=== PATIENT | female | born 1980 | race American Indian/Alaskan Native ===

== ENCOUNTER 2018-05-02 23:43 | Observation (INO) | payer SELFPAY ==
[2018-05-03] MEDS ORDERED: NACL 0.9% 1000 ML 1,000 ML IV ONE ×2 (02:06→07:11)
[2018-05-03 03:12] LABS: Basophils # (Auto) 0.1 K/mm3 (0.0-0.1); Basophils % (Auto) 0.7 % (0.0-1.8); Eosinophils # (Auto) 0.2 K/mm3 (0.0-0.4); Eosinophils % (Auto) 1.1 % (0.0-4.3); Lymphocytes # (Auto) 3.9 K/mm3 (1.2-5.4); Lymphocytes % (Auto) 26.9 % (13.4-35.0); Mean Corpuscular HGB Conc 35 % (30-34); Mean Corpuscular Hemoglobin 33 pg (28-32); Mean Corpuscular Volume 95 fl (79-97); Monocytes # (Auto) 0.6 K/mm3 (0.0-0.8); Monocytes % (Auto) 4.2 % (0.0-7.3); Platelet Count 319 K/mm3 (140-440); Red Blood Count 4.84 M/mm3 (3.65-5.03); Red Cell Distribution Width 13.3 % (13.2-15.2)
[2018-05-03 03:29] LABS: Alanine Aminotransferase 25 units/L (7-56); Albumin 4.6 g/dL (3.9-5); BUN/Creatinine Ratio 15; Blood Urea Nitrogen 9 mg/dL (7-17); Calcium 9.2 mg/dL (8.4-10.2); Hemolysis Index 12; Lipase 38 units/L (13-60)
[2018-05-03 04:41] LABS: Bilirubin,Urine NEG (Negative); Blood,Urine NEG (Negative); Color,Urine Yellow (Yellow); Protein,Urine <15 mg/dL mg/dL (Negative); Urobilinogen,Urine < 2.0 mg/dL (<2.0); WBC,Urine < 1.0 /HPF (0.0-6.0)
[2018-05-03] MEDS ORDERED: MORPHINE IV ONE (07:30)
[2018-05-03] MEDS ORDERED: ASPIRIN PO ONE ×2 (07:31→10:50)
[2018-05-03] MEDS ORDERED: HumuLIN R IV ONE (07:32)
[2018-05-03] MEDS ORDERED: ZOFRAN IV ONE (07:34)
--- NOTE | 2018-05-03 08:43 | XRay Report ---
AP CHEST: HISTORY: chest pain AP view of the chest demonstrates a normal mediastinal and cardiac contour with clear lungs and normal bony and soft tissue structures. IMPRESSION: Unremarkable AP chest.
--- NOTE | 2018-05-03 09:29 | Cat Scan Report ---
CT ABDOMEN PELVIS WITHOUT CONTRAST: HISTORY: abdominal pain. COMPARISON: none. TECHNIQUE: Helical CT in 1.25mm intervals without IV contrast. Sagittal and coronal reconstructions. FINDINGS: Lung bases: Normal. Liver: Normal. Biliary system: Normal. Pancreas: Normal. Spleen: Normal. Kidneys/ureters/bladder: Normal. Adrenal glands: Normal. Aorta: Normal. Intestines: Normal. Appendix: Normal. Pelvic viscera: Normal. Ascites: None. Adenopathy: None. Musculoskeletal: Normal. IMPRESSION: Unremarkable CT scan of the abdomen and pelvis without contrast.
--- NOTE | 2018-05-03 10:31 | Emergency Department Report ---
ED General Adult HPI - General Chief complaint: Abdominal Pain Stated complaint: BACK,PELVIC,FOOT PAIN Time Seen by Provider: 05/03/18 06:04 Source: patient Mode of arrival: Ambulatory Limitations: No Limitations - History of Present Illness Initial comments: 89-year-old female with a history of hypercholesteremia or diabetes, and hypertension presents with the complaint of abdominal pain. Patient states she' s had abdominal pain for the past 2 days. Patient describes the pain as being an 8 out of 10 in her lower abdominal region. Patient denies any vaginal bleeding. Patient's also states that she has been noncompliant with her diabetes medication and her blood sugar has also been up. Patient denies any dysuria or any hematuria. Patient states that she has developed the onset of chest pain 6 hours ago as well. Patient denies any radiation of the chest pain but states the chest pain is sharp in nature. Patient also complains of shortness of breath. Patient complains of left foot pain but denies any fever or any ulcers. Severity scale (0 -10): 3 - Related Data Previous Rx's Medication Instructions Recorded Last Taken Type Gentamicin 0.3% Ophth Soln 2 drops OP Q4H #1 bottle 12/13/14 Unknown Rx HYDROcodone/APAP 5-325 [Hope 1 each PO Q6HR PRN #12 tablet 12/13/14 Unknown Rx 5/325] Ibuprofen [Motrin 800 MG tab] 800 mg PO Q8H PRN #30 tablet 12/13/14 Unknown Rx Sulfamethoxazole/Trimethoprim 1 each PO BID #14 tablet 12/13/14 Unknown Rx [Bactrim Ds] Allergies Allergy/AdvReac Type Severity Reaction Status Date / Time shellfish derived Allergy Swelling Verified 12/13/14 13:08 ED Review of Systems ROS: Stated complaint: BACK,PELVIC,FOOT PAIN Other details as noted in HPI Comment: All other systems reviewed and negative Constitutional: denies: chills, fever Eyes: denies: eye pain, eye discharge, vision change ENT: denies: ear pain, throat pain Respiratory: denies: cough, shortness of breath, wheezing Cardiovascular: chest pain. denies: palpitations Endocrine: no symptoms reported Gastrointestinal: abdominal pain. denies: nausea, diarrhea Genitourinary: denies: urgency, dysuria, discharge Musculoskeletal: denies: back pain, joint swelling, arthralgia Skin: denies: rash, lesions Neurological: denies: headache, weakness, paresthesias Psychiatric: denies: anxiety, depression Hematological/Lymphatic: denies: easy bleeding, easy bruising ED Past Medical Hx - Past Medical History Hx Hypertension: Yes Hx Diabetes: Yes Additional medical history: High Cholesterol - Surgical History Additional Surgical History: hernia repair / breast reduction - Social History Smoking Status: Current Every Day Smoker Substance Use Type: None - Medications Home Medications: Home Medications Medication Instructions Recorded Confirmed Last Taken Type Gentamicin 0.3% Ophth Soln 2 drops OP Q4H #1 bottle 12/13/14 Unknown Rx HYDROcodone/APAP 5-325 [Hope 1 each PO Q6HR PRN #12 tablet 12/13/14 Unknown Rx 5/325] Ibuprofen [Motrin 800 MG tab] 800 mg PO Q8H PRN #30 tablet 12/13/14 Unknown Rx Sulfamethoxazole/Trimethoprim 1 each PO BID #14 tablet 12/13/14 Unknown Rx [Bactrim Ds] ED Physical Exam - General Limitations: No Limitations General appearance: alert, other (awake, uncomfortable) - Head Head exam: Present: atraumatic, normocephalic - Eye Eye exam: Present: normal appearance - ENT ENT exam: Present: mucous membranes moist - Neck Neck exam: Present: normal inspection - Respiratory Respiratory exam: Present: normal lung sounds bilaterally. Absent: respiratory distress - Cardiovascular Cardiovascular Exam: Present: regular rate, normal rhythm. Absent: systolic murmur, diastolic murmur, rubs, gallop - GI/Abdominal GI/Abdominal exam: Present: soft, tenderness (tender in left lower quadrant), normal bowel sounds - Extremities Exam Extremities exam: Present: normal inspection - Back Exam Back exam: Present: normal inspection - Neurological Exam Neurological exam: Present: alert, oriented X3 - Psychiatric Psychiatric exam: Present: normal affect, normal mood - Skin Skin exam: Present: warm, dry, intact, normal color. Absent: rash ED Course Vital Signs 05/03/18 05/03/18 05/03/18 00:27 02:00 07:09 Temperature 99.2 F 99.2 F Pulse Rate 111 H 106 H Respiratory 18 18 18 Rate Blood Pressure 155/115 155/115 O2 Sat by Pulse 98 100 Oximetry 05/03/18 05/03/18 05/03/18 08:47 09:00 09:15 Temperature Pulse Rate 104 H 99 H 95 H Respiratory 14 13 14 Rate Blood Pressure 137/83 130/86 O2 Sat by Pulse 99 93 94 Oximetry 05/03/18 05/03/18 05/03/18 09:30 09:45 11:54 Temperature Pulse Rate 91 H 97 H Respiratory 14 14 18 Rate Blood Pressure 135/82 127/67 O2 Sat by Pulse 96 97 Oximetry - Reevaluation(s) Reevaluation #1: 05/03/18 11:51 Patient lanes of pain and was given Toradol therapy which helped improve this. Patient was also noted to have a elevated anion gap however had a normal pH on the VBG. She received IV fluids and Accu-Chek has downgraded. Call placed to the hospitalist service and hospitalist wants to evaluate the patient prior to formally admitting patient. 05/03/18 11:52 ED Medical Decision Making - Lab Data Result diagrams: 05/03/18 02:22 05/03/18 10:51 - EKG Data -: EKG Interpreted by Me EKG shows normal: sinus rhythm Rate: normal - EKG Data Interpretation: no acute changes - Radiology Data Radiology results: report reviewed Critical Care Time: No Critical care attestation.: If time is entered above; I have spent that time in minutes in the direct care of this critically ill patient, excluding procedure time. ED Disposition Clinical Impression: Chest pain Disposition: OP ADMIT IP TO THIS HOSP Is pt being admited?: Yes Does the pt Need Aspirin: No (Received Aspirin already during ER stay) Condition: Stable Instructions: Chest Pain (ED), Abdominal Pain (ED) Referrals: PRIMARY CARE, [Primary Care Provider] - 3-5 Days Time of Disposition: 12:16
[2018-05-03] MEDS ORDERED: TORADOL IV ONE (11:44)
[2018-05-03] MEDS ORDERED: TORADOL ONE (11:48)
[2018-05-03 12:06] LABS: Alanine Aminotransferase 23 units/L (7-56); Albumin 3.9 g/dL (3.9-5); BUN/Creatinine Ratio 18; Blood Urea Nitrogen 7 mg/dL (7-17); Calcium 8.6 mg/dL (8.4-10.2); Hemolysis Index 36
[2018-05-03] MEDS ORDERED: TYLENOL PO PRN ×2 (12:13→15:40)
[2018-05-03] MEDS ORDERED: ZOFRAN IV PRN ×2 (12:13→15:40)
[2018-05-03] MEDS ORDERED: SODIUM CHLORIDE FLUSH SYRINGE 10 ML IV PRN ×2 (12:13→15:40)
--- NOTE | 2018-05-03 15:35 | History and Physical Report ---
History of Present Illness Date of examination: 05/03/18 Date of admission: 05/03/18 12:13 Medications and Allergies Allergies Allergy/AdvReac Type Severity Reaction Status Date / Time shellfish derived Allergy Swelling Verified 12/13/14 13:08 Home Medications Medication Instructions Recorded Confirmed Last Taken Type No Known Home Medications [No 05/03/18 05/03/18 Unknown History Reported Home Medications] Active Meds: Active Medications Acetaminophen (Tylenol) 650 mg PO Q4H PRN PRN Reason: Pain MILD(1-3)/Fever >100.5/ALAS Last Admin: 05/03/18 14:59 Dose: 650 mg Ondansetron HCl (Zofran) 4 mg IV Q8H PRN PRN Reason: Nausea And Vomiting Sodium Chloride (Sodium Chloride Flush Syringe 10 Ml) 10 ml IV BID CHRISTI Sodium Chloride (Sodium Chloride Flush Syringe 10 Ml) 10 ml IV PRN PRN PRN Reason: LINE FLUSH Exam - Constitutional Vitals: Temp Pulse Resp BP Pulse Ox 98.4 F 96 H 22 137/78 98 05/03/18 14:30 05/03/18 14:34 05/03/18 14:34 05/03/18 14:30 05/03/18 14:34 Results - Labs CBC & Chem 7: 05/03/18 02:22 05/03/18 10:51 Labs: Laboratory Last Values WBC 14.5 K/mm3 (4.5-11.0) H 05/03/18 02:22 RBC 4.84 M/mm3 (3.65-5.03) 05/03/18 02:22 Hgb 16.0 gm/dl (10.1-14.3) H 05/03/18 02:22 Hct 46.0 % (30.3-42.9) H 05/03/18 02:22 MCV 95 fl (79-97) 05/03/18 02:22 MCH 33 pg (28-32) H 05/03/18 02:22 MCHC 35 % (30-34) H 05/03/18 02:22 RDW 13.3 % (13.2-15.2) 05/03/18 02:22 Plt Count 319 K/mm3 (140-440) 05/03/18 02:22 Lymph % (Auto) 26.9 % (13.4-35.0) 05/03/18 02:22 [place] % (Auto) 4.2 % (0.0-7.3) 05/03/18 02:22 Eos % (Auto) 1.1 % (0.0-4.3) 05/03/18 02:22 Baso % (Auto) 0.7 % (0.0-1.8) 05/03/18 02:22 Lymph # 3.9 K/mm3 (1.2-5.4) 05/03/18 02:22 [place] # 0.6 K/mm3 (0.0-0.8) 05/03/18 02:22 Eos # 0.2 K/mm3 (0.0-0.4) 05/03/18 02:22 Baso # 0.1 K/mm3 (0.0-0.1) 05/03/18 02:22 Seg Neutrophils % 67.1 % (40.0-70.0) 05/03/18 02:22 Seg Neutrophils # 9.8 K/mm3 (1.8-7.7) H 05/03/18 02:22 VBG pH 7.394 (7.320-7.420) 05/03/18 02:22 Sodium 136 mmol/L (137-145) L 05/03/18 10:51 Potassium 4.1 mmol/L (3.6-5.0) 05/03/18 10:51 Chloride 98.0 mmol/L (98-107) 05/03/18 10:51 Carbon Dioxide 24 mmol/L (22-30) 05/03/18 10:51 Anion Gap 18 mmol/L 05/03/18 10:51 BUN 7 mg/dL (7-17) 05/03/18 10:51 Creatinine 0.4 mg/dL (0.7-1.2) L 05/03/18 10:51 Estimated GFR > 60 ml/min 05/03/18 10:51 BUN/Creatinine Ratio 18 % 05/03/18 10:51 Glucose 319 mg/dL (65-100) H 05/03/18 10:51 POC Glucose 289 (70-105) H 05/03/18 08:03 Calcium 8.6 mg/dL (8.4-10.2) 05/03/18 10:51 Total Bilirubin 0.50 mg/dL (0.1-1.2) 05/03/18 10:51 AST 20 units/L (5-40) 05/03/18 10:51 ALT 23 units/L (7-56) 05/03/18 10:51 Alkaline Phosphatase 95 units/L (35-129) 05/03/18 10:51 Troponin T < 0.010 ng/mL (0.00-0.029) 05/03/18 10:51 Total Protein 7.0 g/dL (6.3-8.2) 05/03/18 10:51 Albumin 3.9 g/dL (3.9-5) 05/03/18 10:51 Albumin/Globulin Ratio 1.3 % 05/03/18 10:51 Lipase 38 units/L (13-60) 05/03/18 02:22 HCG, Qual Negative (Negative) 05/03/18 02:22 Urine Color Yellow (Yellow) 05/03/18 02:21 Urine Turbidity Clear (Clear) 05/03/18 02:21 Urine pH 5.0 (5.0-7.0) 05/03/18 02:21 Ur Specific [place] 1.033 (1.003-1.030) H 05/03/18 02:21 Urine Protein <15 mg/dl mg/dL (Negative) 05/03/18 02:21 Urine Glucose (UA) >=500 mg/dL (Negative) 05/03/18 02:21 Urine Ketones Tr mg/dL (Negative) 05/03/18 02:21 Urine Blood Neg (Negative) 05/03/18 02:21 Urine Nitrite Neg (Negative) 05/03/18 02:21 Urine Bilirubin Neg (Negative) 05/03/18 02:21 Urine Urobilinogen < 2.0 mg/dL (<2.0) 05/03/18 02:21 Ur Leukocyte Esterase Neg (Negative) 05/03/18 02:21 Urine WBC (Auto) < 1.0 /HPF (0.0-6.0) 05/03/18 02:21 Urine RBC (Auto) 2.0 /HPF (0.0-6.0) 05/03/18 02:21 U Epithel Cells (Auto) < 1.0 /HPF (0-13.0) 05/03/18 02:21
[2018-05-03] MEDS ORDERED: MORPHINE IV PRN (15:40)
[2018-05-03] MEDS: PEPCID IV SCH ×2 (16:54→21:02)
[2018-05-03] MEDS: NACL 0.9% 1000 ML 1,000 ML IV SCH (16:56)
[2018-05-03] MEDS: KEPPRA 750 MG in NACL 0.9% 100 ML IV SCH ×2 (17:01→21:02)
[2018-05-03] MEDS: GLUCOPHAGE PO SCH (20:55)
[2018-05-03] MEDS: SODIUM CHLORIDE FLUSH SYRINGE 10 ML IV SCH (21:02)
[2018-05-03] MEDS ORDERED: SODIUM CHLORIDE FLUSH SYRINGE 10 ML IV SCH (22:00)
--- NOTE | 2018-05-03 22:17 | Event Note ---
Date: 05/03/18 See dictated history and physical and the reports Chest pain rule out NV Uncontrolled diabetes
[2018-05-03] MEDS: PROTONIX IV SCH (22:46)
[2018-05-03] MEDS: PERCOCET 5/325 PO PRN (22:49)
--- NOTE | 2018-05-03 23:19 | History and Physical Report ---
CHIEF COMPLAINT: Chest pain and abdominal pain. HISTORY OF PRESENT ILLNESS: A 37-year-old black female with a history of hypercholesterolemia and uncontrolled diabetes and hypertension, comes in for epigastric pain and retrosternal chest pain. Chest pain is about 8 on a scale of 1-10. The patient states that she has been noncompliant with her diabetes medications and her sugars have been running high. No dysuria. Also, onset of chest pain since 6 hours, retrosternal. No radiation. No diaphoresis, no palpitations. No orthopnea. No recent travel. No exacerbating or relieving factors. PAST MEDICAL HISTORY: Significant for hypertension and diabetes. PAST SURGICAL HISTORY: Hernia repair and breast reduction. SOCIAL HISTORY: She smokes about a pack a day. FAMILY HISTORY: Hypertension. CURRENT MEDICATIONS: Metformin 1000 b.i.d. and hydrocodone 5/325 q.6 h. p.r.n. REVIEW OF SYSTEMS: Significant for abdominal pain and chest pain for 1 day duration. Chest pain for the last 6 hours. Some nausea present. Otherwise, review of systems negative. PHYSICAL EXAMINATION: GENERAL: On examination, young female, cooperative during examination. VITAL SIGNS: Blood pressure is 137/78, temperature is 98.4, pulse is 96, and respirations are 22. HEENT: Unremarkable. Pupils are equal and reactive. NECK: Supple, no lymphadenopathy, no thyromegaly. LUNGS: Clear to auscultation and percussion. Good air entry. CARDIOVASCULAR: S1 and S2 heard. No gallop, no murmur. Apical impulse in left fifth intercostal space and midclavicular line. ABDOMEN: Tenderness present in the epigastric region. Bowel sounds are normal. EXTREMITIES: Good pedal pulses. No pedal edema. CENTRAL NERVOUS SYSTEM: Alert and oriented x 4, nonfocal exam. SKIN: Normal. LABORATORY DATA: Significant for white count of 14,500, H and H are 16.0 and 46.0, and platelet count is 319,000. Sodium is 136, potassium is 4.2, chloride is 95, BUN and creatinine are 9 and 0.6, glucose is 363 and repeat glucose is 308, hemoglobin A1c is 11.8. LFTs are normal. Urine showed a specific gravity of 1.033. EKG is normal sinus rhythm, no acute ST-T wave changes. Chest x-ray is unremarkable. Unremarkable CAT scan of the abdomen and pelvis without contrast. ASSESSMENT AND PLAN: 1. Chest pain, rule out myocardial infarction, chest pain protocol. 2. Abdominal pain secondary to gastritis. IV Protonix 40 mg q.12 hours. 3. Uncontrolled diabetes. We will add glimepiride 4 mg once a day and continue metformin 1000 b.i.d. The patient may need Lantus and the patient asked to see the PCP for care of her diabetes. 4. Hypertension. Continue antihypertensives. 5. Deep venous thrombosis prophylaxis, Lovenox 40 mg subcutaneous daily, 6. Nicotine dependence. Nicotine patch ordered. JOB# [id number] VSM/NTS
[2018-05-04] MEDS ORDERED: LOPRESSOR PO ONE (01:00)
[2018-05-04 05:46] LABS: Basophils # (Auto) 0.1 K/mm3 (0.0-0.1); Basophils % (Auto) 0.6 % (0.0-1.8); Eosinophils # (Auto) 0.2 K/mm3 (0.0-0.4); Eosinophils % (Auto) 1.5 % (0.0-4.3); Hematocrit 42.3 % (30.3-42.9); Hemoglobin 14.5 gm/dl (10.1-14.3); Lymphocytes # (Auto) 3.2 K/mm3 (1.2-5.4); Lymphocytes % (Auto) 32.2 % (13.4-35.0); Mean Corpuscular HGB Conc 34 % (30-34); Mean Corpuscular Hemoglobin 33 pg (28-32); Mean Corpuscular Volume 96 fl (79-97); Monocytes # (Auto) 0.4 K/mm3 (0.0-0.8); Monocytes % (Auto) 3.8 % (0.0-7.3); Platelet Count 289 K/mm3 (140-440); Red Blood Count 4.43 M/mm3 (3.65-5.03); Red Cell Distribution Width 13.3 % (13.2-15.2)
[2018-05-04 06:04] LABS: Albumin 3.8 g/dL (3.9-5); BUN/Creatinine Ratio 14; Blood Urea Nitrogen 7 mg/dL (7-17); Calcium 8.4 mg/dL (8.4-10.2); Hemolysis Index 72
[2018-05-04 06:26] LABS: Alanine Aminotransferase < 5 units/L (7-56)
[2018-05-04] MEDS: NACL 0.9% 1000 ML 1,000 ML IV SCH (07:36)
[2018-05-04] MEDS ORDERED: AMARYL PO SCH (08:00)
[2018-05-04] MEDS: GLUCOPHAGE PO SCH (09:17)
[2018-05-04] MEDS: HumaLOG SUB-Q SCH ×2 (09:18→12:49)
[2018-05-04] MEDS: SODIUM CHLORIDE FLUSH SYRINGE 10 ML IV SCH (11:08)
[2018-05-04] MEDS: PROTONIX IV SCH (11:08)
[2018-05-04] MEDS: KEPPRA 750 MG in NACL 0.9% 100 ML IV SCH (11:09)
[2018-05-04 12:11] VITALS: BP 137/77
[2018-05-04] MEDS: PERCOCET 5/325 PO PRN (12:18)
--- NOTE | 2018-05-04 14:06 | Treadmill Report ---
STRESS TEST This 37-year-old patient with history of diabetes, hypertension; underwent stress testing because of chest pain. She exercised on João protocol for 5 minutes 50 seconds, reaching target heart rate. She did not have any chest pain. No ischemic changes . Blood pressure response was appropriate. Subsequently, she had Myoview injected and repeat images were done. Resting images revealed homogeneous radioisotope activity. On post-exercise technetium scan revealed similar uptake. Stress ejection fraction of 52%. There is no segmental motion abnormality. IMPRESSION: This test is negative for ischemia. JOB# [id number] ABEBE/SOSA CASTANEDA
--- NOTE | 2018-05-04 15:17 | Discharge Summary ---
Providers - Providers Date of Admission: 05/03/18 12:13 Date of discharge: 05/04/18 Attending physician: REJI BUSTOS 05/03/18 Consult to Case Management [CONS] Routine Services Needed at Discharge: Home Health Services Notified:: cm notified 05/03/18 15:45 Consult to Physician [CONS] Routine Comment: Consulting Provider: JASE THACKER Physician Instructions: Reason For Exam: seizure sisorder Primary care physician: PROFESSIONAL NURSING [employer]OR Hospitalization Condition: Stable Pertinent studies: Lexiscan negative Procedures: Lexiscan negative Hospital course: patientr has Chest pain and uncontrolled Diabetes.Gli mepride 4 mg po qday added lexiscan negative D/c home on percocet for back pain. Disposition: DC- TO HOME OR SELFCARE Core Measure Documentation - Palliative Care Palliative Care/ Comfort Measures: Not Applicable - Core Measures Any of the following diagnoses?: none Exam - Constitutional Vitals: Temp Pulse Resp BP Pulse Ox 98.5 F 94 H 20 137/77 100 05/04/18 12:08 05/04/18 12:08 05/04/18 12:08 05/04/18 12:08 05/04/18 12:08 General appearance: Present: no acute distress, well-nourished - EENT Eyes: Present: PERRL ENT: hearing intact, clear oral mucosa - Neck Neck: Present: supple, normal ROM - Respiratory Respiratory effort: normal Respiratory: bilateral: CTA - Cardiovascular Heart Sounds: Present: S1 & S2. Absent: rub, click - Extremities Extremities: pulses symmetrical, No edema Peripheral Pulses: within normal limits - Abdominal General gastrointestinal: Present: soft, non-tender, non-distended, normal bowel sounds Female genitourinary: Present: normal - Integumentary Integumentary: Present: clear, warm, dry - Musculoskeletal Musculoskeletal: gait normal, strength equal bilaterally - Psychiatric Psychiatric: appropriate mood/affect, intact judgment & insight - Neurologic Neurologic: CNII-XII intact, moves all extremities - Allied Health Allied health notes reviewed: nursing, case management Plan Activity: no restrictions Diet: regular, low salt Follow up with: PRIMARY CARE, [Primary Care Provider] - 3-5 Days
== END 2018-05-04 16:23 | disposition home or self-care (01) ==
LOC: ED 23:43 → 4A 05-03 12:13
PROVIDERS: ADMIT Internal Medicine; ATTEND Internal Medicine
DX: R07.89 Other chest pain (principal); K29.70 Gastritis, unspecified, without bleeding; I10 Essential (primary) hypertension; E78.00 Pure hypercholesterolemia, unspecified; E11.65 Type 2 diabetes mellitus with hyperglycemia; Z82.49 Family history of ischemic heart disease and other diseases of the circulatory system; Z91.14 Patient's other noncompliance with medication regimen
CPT/HCPCS: 36415; 71045; 74176; 78452; 80053; 81001; 82805; 82962; 83036; 83690; 84484; 84703; 85025; 93005; 93010; 93017; 96372; 96374; 96375; 96376; 99285; A9502; C9113; G0378; J1885; J1953; J2270; J2405; J7030; 96361; J1815

== ENCOUNTER 2021-02-15 12:29 | Emergency (ER) | payer MEDICAID, SELFPAY ==
[2021-02-15 13:45] LABS: Alanine Aminotransferase 56 units/L (7-56); Albumin 4.5 g/dL (3.9-5); Blood Urea Nitrogen 10 mg/dL (7-17); Hemolysis Index 11
[2021-02-15] MEDS ORDERED: ONDANSETRON 4 MG/2 ML INJ IV ONE (13:45)
[2021-02-15] MEDS ORDERED: MORPHINE 4 MG/1 ML INJ IV ONE (13:45)
[2021-02-15] MEDS ORDERED: SODIUM CHLORIDE 0.9% 1000 ML 1,000 ML IV ONE (13:45)
[2021-02-15 13:46] LABS: BUN/Creatinine Ratio 20
[2021-02-15 13:52] LABS: Basophils # (Auto) 0.1 K/mm3 (0.0-0.1); Basophils % (Auto) 0.7 % (0.0-1.8); Eosinophils # (Auto) 0.3 K/mm3 (0.0-0.4); Hematocrit 42.6 % (30.3-42.9); Hemoglobin 14.3 gm/dl (10.1-14.3); Lymphocytes % (Auto) 22.6 % (13.4-35.0); Mean Corpuscular HGB Conc 34 % (30-34); Mean Corpuscular Volume 98 fl (79-97); Monocytes # (Auto) 0.8 K/mm3 (0.0-0.8); Platelet Count 338 K/mm3 (140-440); Red Blood Count 4.37 M/mm3 (3.65-5.03); Red Cell Distribution Width 13.1 % (13.2-15.2)
--- NOTE | 2021-02-15 13:56 | Emergency Department Report ---
ED General Adult HPI - General Chief complaint: Abdominal Pain Stated complaint: LT SIDE AND UPPER BACK PAIN Time Seen by Provider: 02/15/21 13:34 Source: patient Mode of arrival: Ambulatory Limitations: No Limitations - History of Present Illness Initial comments: Patient is a 40-year-old female presents emergency with complaints of left flank pain and left-sided abdominal pain under the left breast that began 4 days ago. She has associated nausea and vomiting. She states that she has pleuritic pain. She denies any diarrhea, fever, hematochezia, hematemesis, melena, urinary symptoms, chest pain, shortness of breath. Past medical history of hy pertension, diabetes, hyperlipidemia. No allergies to medications. She states her pain is worse after eating. She states that the vomiting usually occurs first thing in the morning. Severity scale (0 -10): 9 - Related Data Previous Rx's Medication Instructions Recorded Last Taken Type Glimepiride [Amaryl] 4 mg PO QDDIAB #30 tablet 05/04/18 Unknown Rx metFORMIN 1,000 mg PO BID #60 05/04/18 Unknown Rx Benzonatate [Tessalon Perles] 100 mg PO Q12H PRN #20 capsule 09/07/19 Unknown Rx levoFLOXacin [Levaquin] 750 mg PO QDAY #14 tablet 09/07/19 Unknown Rx Mag Hydrox/Aluminum Hyd/Simeth 10 ml PO QID PRN #1 bottle 02/15/21 Unknown Rx [Maalox Advanced Suspension] Ondansetron [Zofran Odt] 4 mg PO Q8HR PRN #10 tab.rapdis 02/15/21 Unknown Rx Pantoprazole [Protonix TAB] 40 mg PO QDAY #30 tablet 02/15/21 Unknown Rx Sucralfate [Carafate] 1 gm PO ACHS 7 Days #21 tablet 02/15/21 Unknown Rx Allergies Allergy/AdvReac Type Severity Reaction Status Date / Time shellfish derived Allergy Swelling Verified 02/15/21 12:56 ED Review of Systems ROS: Stated complaint: LT SIDE AND UPPER BACK PAIN Other details as noted in HPI Comment: All other systems reviewed and negative ED Past Medical Hx - Past Medical History Hx Hypertension: Yes Hx Congestive Heart Failure: No Hx Diabetes: Yes Hx Asthma: No Hx COPD: No Hx HIV: No Additional medical history: High Cholesterol - Surgical History Additional Surgical History: hernia repair / breast reduction - Social History Smoking Status: Current Every Day Smoker Substance Use Type: None - Medications Home Medications: Home Medications Medication Instructions Recorded Confirmed Last Taken Type Glimepiride [Amaryl] 4 mg PO QDDIAB #30 tablet 05/04/18 Unknown Rx metFORMIN 1,000 mg PO BID #60 05/04/18 Unknown Rx Benzonatate [Tessalon Perles] 100 mg PO Q12H PRN #20 capsule 09/07/19 Unknown Rx levoFLOXacin [Levaquin] 750 mg PO QDAY #14 tablet 09/07/19 Unknown Rx Mag Hydrox/Aluminum Hyd/Simeth 10 ml PO QID PRN #1 bottle 02/15/21 Unknown Rx [Maalox Advanced Suspension] Ondansetron [Zofran Odt] 4 mg PO Q8HR PRN #10 tab.rapdis 02/15/21 Unknown Rx Pantoprazole [Protonix TAB] 40 mg PO QDAY #30 tablet 02/15/21 Unknown Rx Sucralfate [Carafate] 1 gm PO ACHS 7 Days #21 tablet 02/15/21 Unknown Rx ED Physical Exam - General Limitations: No Limitations General appearance: alert, in no apparent distress - Head Head exam: Present: atraumatic, normocephalic - Eye Eye exam: Present: normal appearance - ENT ENT exam: Present: mucous membranes moist - Respiratory Respiratory exam: Present: normal lung sounds bilaterally. Absent: respiratory distress, wheezes, rales, rhonchi, stridor, chest wall tenderness, accessory muscle use, decreased breath sounds, prolonged expiratory - Cardiovascular Cardiovascular Exam: Present: regular rate, normal rhythm, normal heart sounds. Absent: systolic murmur, diastolic murmur, rubs, gallop - GI/Abdominal GI/Abdominal exam: Present: soft, tenderness (LUQ), normal bowel sounds. Absent: distended, guarding, rebound, rigid - Back Exam Back exam: Present: CVA tenderness (L). Absent: CVA tenderness (R) - Neurological Exam Neurological exam: Present: alert, oriented X3 - Psychiatric Psychiatric exam: Present: normal affect, normal mood - Skin Skin exam: Present: warm, dry, intact ED Course Vital Signs 02/15/21 02/15/21 02/15/21 12:56 14:17 15:44 Temperature 99.1 F Pulse Rate 112 H 94 H Respiratory 20 16 19 Rate Blood Pressure 131/93 118/81 [Right] O2 Sat by Pulse 100 100 Oximetry ED Medical Decision Making - Lab Data Result diagrams: 02/15/21 13:09 02/15/21 13:09 Lab Results 02/15/21 02/15/21 02/15/21 Range/Units 13:09 13:09 13:09 WBC 13.3 H (4.5-11.0) K/mm3 RBC 4.37 (3.65-5.03) M/mm3 Hgb 14.3 (10.1-14.3) gm/dl Hct 42.6 (30.3-42.9) % MCV 98 H (79-97) fl MCH 33 H (28-32) pg MCHC 34 (30-34) % RDW 13.1 L (13.2-15.2) % Plt Count 338 (140-440) K/mm3 Lymph % (Auto) 22.6 (13.4-35.0) % [place] % (Auto) 6.0 (0.0-7.3) % Eos % (Auto) 2.0 (0.0-4.3) % Baso % (Auto) 0.7 (0.0-1.8) % Lymph # (Auto) 3.0 (1.2-5.4) K/mm3 [place] # (Auto) 0.8 (0.0-0.8) K/mm3 Eos # (Auto) 0.3 (0.0-0.4) K/mm3 Baso # (Auto) 0.1 (0.0-0.1) K/mm3 Seg Neutrophils % 68.7 (40.0-70.0) % Seg Neutrophils # 9.1 H (1.8-7.7) K/mm3 D-Dimer (0-234) ng/mlDDU Sodium 137 (137-145) mmol/L Potassium 4.0 (3.6-5.0) mmol/L Chloride 99.1 (98-107) mmol/L Carbon Dioxide 25 (22-30) mmol/L Anion Gap 17 mmol/L BUN 10 (7-17) mg/dL Creatinine 0.5 L (0.6-1.2) mg/dL Estimated GFR > 60 ml/min BUN/Creatinine Ratio 20 % Glucose 194 H (65-100) mg/dL Calcium 10.0 (8.4-10.2) mg/dL Total Bilirubin 0.40 (0.1-1.2) mg/dL AST 77 H (5-40) units/L ALT 56 (7-56) units/L Alkaline Phosphatase 119 (35-129) units/L Troponin T (0.00-0.029) ng/mL Total Protein 7.3 (6.3-8.2) g/dL Albumin 4.5 (3.9-5) g/dL Albumin/Globulin Ratio 1.6 % Lipase (13-60) units/L HCG, Qual Negative (Negative) Urine Color (Yellow) Urine Turbidity (Clear) Urine pH (5.0-7.0) Ur Specific [place] (1.003-1.030) Urine Protein (Negative) mg/dL Urine Glucose (UA) (Negative) mg/dL Urine Ketones (Negative) mg/dL Urine Blood (Negative) Urine Nitrite (Negative) Urine Bilirubin (Negative) Urine Urobilinogen (<2.0) mg/dL Ur Leukocyte Esterase (Negative) Urine WBC (Auto) (0.0-6.0) /HPF Urine RBC (Auto) (0.0-6.0) /HPF U Epithel Cells (Auto) (0-13.0) /HPF Urine Mucus /HPF 02/15/21 02/15/21 02/15/21 Range/Units 13:43 14:02 14:02 WBC (4.5-11.0) K/mm3 RBC (3.65-5.03) M/mm3 Hgb (10.1-14.3) gm/dl Hct (30.3-42.9) % MCV (79-97) fl MCH (28-32) pg MCHC (30-34) % RDW (13.2-15.2) % Plt Count (140-440) K/mm3 Lymph % (Auto) (13.4-35.0) % [place] % (Auto) (0.0-7.3) % Eos % (Auto) (0.0-4.3) % Baso % (Auto) (0.0-1.8) % Lymph # (Auto) (1.2-5.4) K/mm3 [place] # (Auto) (0.0-0.8) K/mm3 Eos # (Auto) (0.0-0.4) K/mm3 Baso # (Auto) (0.0-0.1) K/mm3 Seg Neutrophils % (40.0-70.0) % Seg Neutrophils # (1.8-7.7) K/mm3 D-Dimer 149.26 (0-234) ng/mlDDU Sodium (137-145) mmol/L Potassium (3.6-5.0) mmol/L Chloride (98-107) mmol/L Carbon Dioxide (22-30) mmol/L Anion Gap mmol/L BUN (7-17) mg/dL Creatinine (0.6-1.2) mg/dL Estimated GFR ml/min BUN/Creatinine Ratio % Glucose (65-100) mg/dL Calcium (8.4-10.2) mg/dL Total Bilirubin (0.1-1.2) mg/dL AST (5-40) units/L ALT (7-56) units/L Alkaline Phosphatase (35-129) units/L Troponin T < 0.010 (0.00-0.029) ng/mL Total Protein (6.3-8.2) g/dL Albumin (3.9-5) g/dL Albumin/Globulin Ratio % Lipase 46 (13-60) units/L HCG, Qual (Negative) Urine Color Yellow (Yellow) Urine Turbidity Clear (Clear) Urine pH 5.0 (5.0-7.0) Ur Specific [place] 1.032 H (1.003-1.030) Urine Protein 30 mg/dl (Negative) mg/dL Urine Glucose (UA) Neg (Negative) mg/dL Urine Ketones Neg (Negative) mg/dL Urine Blood Lg (Negative) Urine Nitrite Neg (Negative) Urine Bilirubin Neg (Negative) Urine Urobilinogen 2.0 (<2.0) mg/dL Ur Leukocyte Esterase Tr (Negative) Urine WBC (Auto) 5.0 (0.0-6.0) /HPF Urine RBC (Auto) 7.0 (0.0-6.0) /HPF U Epithel Cells (Auto) 3.0 (0-13.0) /HPF Urine Mucus 1+ /HPF Vital Signs 02/15/21 02/15/21 02/15/21 12:56 14:17 15:44 Temperature 99.1 F Pulse Rate 112 H 94 H Respiratory 20 16 19 Rate Blood Pressure 131/93 118/81 [Right] O2 Sat by Pulse 100 100 Oximetry - EKG Data EKG shows normal: sinus rhythm, axis, intervals, QRS complexes Rate: tachycardia - EKG Data 02/15/21 13:55 anterior infarct, old no STEMI - Radiology Data Radiology results: report reviewed Ordering Physician: JB WISEMAN Date of Service: 02/15/21 Procedure(s): CT abdomen pelvis w con Accession Number(s): [id number] cc: JB WISEMAN CT ABDOMEN AND PELVIS WITH CONTRAST INDICATION / CLINICAL INFORMATION: LUQ abd pain, left flank pain, N/v Omni 300 100 ml. TECHNIQUE: Axial CT images were obtained through the abdomen and pelvis after IV contrast. All CT scans at this location are performed using CT dose reduction for ALARA by means of automated exposure control. COMPARISON: CT dated 05/03/18 FINDINGS: LOWER CHEST: No significant abnormality. LIVER: Liver is enlarged and hypodense characteristic of fatty infiltration. GALLBLADDER: No significant abnormality. BILE DUCTS: No significant abnormality. PANCREAS: No significant abnormality. SPLEEN: No significant abnormality. ADRENALS: No significant abnormality. RIGHT KIDNEY / URETER: No significant abnormality. LEFT KIDNEY / URETER: No significant abnormality. STOMACH / SMALL BOWEL: No significant abnormality. COLON: No significant abnormality. APPENDIX: No significant abnormality. PERITONEUM: No free fluid. No free air. No fluid collection. LYMPH NODES: No significant adenopathy. AORTA / ARTERIES: No significant abnormality. IVC / VEINS: No significant abnormality. URINARY BLADDER: No significant abnormality. REPRODUCTIVE ORGANS: No significant abnormality. ADDITIONAL FINDINGS: None. SKELETAL SYSTEM: No significant abnormality. IMPRESSION: 1. No acute process in the abdomen or pelvis. 2. Hepatomegaly with hepatic steatosis. Signer Name: Elan Aguilar MD Signed: 02/15/2021 3:57 PM Workstation Name: [id number] Transcribed By: JUAN Dictated By: Richard Aguilar MD Electronically Authenticated By: Richard Aguilar MD Signed Date/Time: 02/15/21 1557 DD/ 155 TD/TT: Print - Medical Decision Making Patient is a 40-year-old female presents emergency with complaints of left flank pain and left-sided abdominal pain under the left breast that began 4 days ago. She has associated nausea and vomiting. She states that she has pleuritic pain. She denies any diarrhea, fever, hematochezia, hematemesis, melena, urinary symptoms, chest pain, shortness of breath. Past medical history of hypertension, diabetes, hyperlipidemia. No allergies to medications. She states her pain is worse after eating. She states that the vomiting usually occurs first thing in the morning. initial vitals with tachycardia which improved upon repeat. on exam LUQ abd ttp, left flank pain, no guarding, no rebound, normal bowel sounds, no peritoneal signs. labs are stable. d-dimer is negative. 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 troponin is negative. UA without evidence of UTI. low risk based on wells criteria for PE. CT abd pelvis with IV contrast: 1. No acute process in the abdomen or pelvis. 2. Hepatomegaly with hepatic steatosis. Symptoms could be related to gastritis versus PUD. Patient given medications while in the emergency department as she did not drive and symptoms improved. Patient be referred to primary care doctor, GI doctor, cardiology. Advised patient Please take medication as prescribed. Increase your water intake. Please follow the diet for acid reflux and ulcers. Follow-up with your primary care doctor. Follow-up with a GI doctor. follow up with a fiscal services manager. Return to emergency room for any new or worsening symptoms. Critical care attestation.: If time is entered above; I have spent that time in minutes in the direct care of this critically ill patient, excluding procedure time. ED Disposition Clinical Impression: Left flank pain Abdominal pain Qualifiers: Abdominal location: left upper quadrant Qualified Code(s): R10.12 - Left upper quadrant pain Nausea & vomiting Qualifiers: Vomiting type: unspecified Vomiting Intractability: non-intractable Qualified Code(s): R11.2 - Nausea with vomiting, unspecified Disposition: DC-01 TO HOME OR SELFCARE Is pt being admited?: No Does the pt Need Aspirin: No Condition: Stable Instructions: Peptic Ulcer, [id number], Food Choices for Gastroesophageal Reflux Disease, Adult, Abdominal Pain (ED) Additional Instructions: Please take medication as prescribed. Increase your water intake. Please follow the diet for acid reflux and ulcers. Follow-up with your primary care doctor. Follow-up with a GI doctor. follow up with a fiscal services manager. Return to emergency room for any new or worsening symptoms. Prescriptions: Sucralfate [Carafate] 1 gm PO ACHS 7 Days #21 tablet Mag Hydrox/Aluminum Hyd/Simeth [Maalox Advanced Suspension] 10 ml PO QID PRN #1 bottle PRN Reason: pain/burning Pantoprazole [Protonix TAB] 40 mg PO QDAY #30 tablet Ondansetron [Zofran Odt] 4 mg PO Q8HR PRN #10 tab.rapdis PRN Reason: nausea vomiting Referrals: [facility] [Provider Group] - 2-3 Days NILA TORRES MD [Staff Physician] - 2-3 Days DOTTIE HAINES DO [Referring] - 2-3 Days Time of Disposition: 16:26 Print Language: ROMANIAN
[2021-02-15 14:42] LABS: Bilirubin,Urine NEG (Negative); Blood,Urine LG (Negative); Color,Urine Yellow (Yellow); Mucus,Urine 1+ /HPF
[2021-02-15] MEDS ORDERED: HYDROmorphone 1 MG/1 ML INJ IV ONE (15:25)
[2021-02-15 15:45] VITALS: BP 118/81
--- NOTE | 2021-02-15 16:01 | Cat Scan Report ---
CT ABDOMEN AND PELVIS WITH CONTRAST INDICATION / CLINICAL INFORMATION: LUQ abd pain, left flank pain, N/v Omni 300 100 ml. TECHNIQUE: Axial CT images were obtained through the abdomen and pelvis after IV contrast. All CT sc ans at this location are performed using CT dose reduction for ALARA by means of automated exposure c ontrol. COMPARISON: CT dated 05/03/18 FINDINGS: LOWER CHEST: No significant abnormality. LIVER: Liver is enlarged and hypodense characteristic of fatty infiltration. GALLBLADDER: No significant abnormality. BILE DUCTS: No significant abnormality. PANCREAS: No significant abnormality. SPLEEN: No significant abnormality. ADRENALS: No significant abnormality. RIGHT KIDNEY / URETER: No significant abnormality. LEFT KIDNEY / URETER: No significant abnormality. STOMACH / SMALL BOWEL: No significant abnormality. COLON: No significant abnormality. APPENDIX: No significant abnormality. PERITONEUM: No free fluid. No free air. No fluid collection. LYMPH NODES: No significant adenopathy. AORTA / ARTERIES: No significant abnormality. IVC / VEINS: No significant abnormality. URINARY BLADDER: No significant abnormality. REPRODUCTIVE ORGANS: No significant abnormality. ADDITIONAL FINDINGS: None. SKELETAL SYSTEM: No significant abnormality. IMPRESSION: 1. No acute process in the abdomen or pelvis. 2. Hepatomegaly with hepatic steatosis. Signer Name: Elan Aguilar MD Signed: 02/15/2021 3:57 PM Workstation Name: [id number]
[2021-02-15] MEDS ORDERED: ALUM-MAG HYDROXIDE-SIMETHICONE 200-200-20MG/5ML ORAL LIQD 30 ML PO ONE (16:32)
[2021-02-15] MEDS ORDERED: LIDOCAINE VISCOUS 2% 15 ML ORAL LIQD PO ONE (16:32)
[2021-02-15] MEDS ORDERED: FAMOTIDINE 20 MG TAB PO ONE (16:33)
--- NOTE | 2021-02-21 10:37 | Electrocardiograph Report ---
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
--- NOTE | 2021-02-21 10:39 | Electrocardiograph Report ---
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 Electronically Signed On 02-21-2021 10:39:18 EDT by Yrn Garibay
== END 2021-02-15 16:54 | disposition home or self-care (01) ==
LOC: ED 12:29
DX: R11.2 Nausea with vomiting, unspecified (principal); R10.12 Left upper quadrant pain; I10 Essential (primary) hypertension; E11.9 Type 2 diabetes mellitus without complications; E78.00 Pure hypercholesterolemia, unspecified; F17.200 Nicotine dependence, unspecified, uncomplicated; Z98.890 Other specified postprocedural states; Z91.013 Allergy to seafood; Z79.899 Other long term (current) drug therapy
CPT/HCPCS: 36415; 74177; 80053; 81001; 83690; 84484; 84703; 85025; 85379; 96361; 96374; 96375; 99284; J1170; J2270; J2405; J7030; Q9967; 93005

== ENCOUNTER 2021-09-30 10:12 | Emergency (ER) | payer MEDICAID ==
[2021-09-30] MEDS ORDERED: HYDROcodone/ACETAMINOPHEN 10-325MG TAB PO ONE (11:30)
--- NOTE | 2021-09-30 11:34 | Emergency Department Report ---
ED General Adult HPI - General Chief complaint: Pain General Stated complaint: LT SIDE PAIN Time Seen by Provider: 09/30/21 11:18 Source: patient Mode of arrival: Ambulatory Limitations: No Limitations - History of Present Illness Initial comments: 40-year-old -[place] female with a past medical history of diabetes and hypertension presents to the ER today with complaints of left flank pain. Patient states that the pain has been ongoing since December 2020. She describes as a sharp pain. She states that it seems to be more intense when she eats, and also when she lays on the left side. She was seen here back in February 2021 for her symptoms and had a work-up which included labs, EKG, and CT which were all unremarkable for anything acute. Patient was treated for possible peptic ulcer disease, GERD and she was instructed to follow-up with GI. Patient states that she did follow-up with a garageman September 03 of this year and had an upper endoscopy. Patient brought in report of the upper endoscopy which was negative for anything acute. She states that she is post to follow back up with GI in November of this year. She states that the GI specialist did not give her a possibility as to the cause of it. She states that he told he does not think it coming from her stomach. She states that she has not follow-up with her primary care doctor as yet. She states that the main reason she is here is because of the pain she just wants to find answers as to what is going on. She has not been taking any [id number] medication except the typical blood pressure and diabetes and gabapentin medications. She reports no chest pain, shortness of breath, nausea, vomiting, fever, chills, bowel or bladder incontinence, saddle anesthesia or any additional symptoms at this time. MD Complaint: Left flank pain -: month(s) (Since December 2020) - Related Data Previous Rx's Medication Instructions Recorded Last Taken Type Glimepiride [Amaryl] 4 mg PO QDDIAB #30 tablet 05/04/18 Unknown Rx metFORMIN 1,000 mg PO BID #60 05/04/18 Unknown Rx Benzonatate [Tessalon Perles] 100 mg PO Q12H PRN #20 capsule 09/07/19 Unknown Rx levoFLOXacin [Levaquin] 750 mg PO QDAY #14 tablet 09/07/19 Unknown Rx Mag Hydrox/Aluminum Hyd/Simeth 10 ml PO QID PRN #1 bottle 02/15/21 Unknown Rx [Maalox Advanced Suspension] Ondansetron [Zofran Odt] 4 mg PO Q8HR PRN #10 tab.rapdis 02/15/21 Unknown Rx Pantoprazole [Protonix TAB] 40 mg PO QDAY #30 tablet 02/15/21 Unknown Rx Sucralfate [Carafate] 1 gm PO ACHS 7 Days #21 tablet 02/15/21 Unknown Rx Acetaminophen/Codeine [Tylenol 1 tab PO Q4HR PRN #10 tablet 09/30/21 Unknown Rx /Codeine # 3 tab] Allergies Allergy/AdvReac Type Severity Reaction Status Date / Time shellfish derived Allergy Swelling Verified 02/15/21 12:56 ED Review of Systems ROS: Stated complaint: LT SIDE PAIN Other details as noted in HPI Comment: All other systems reviewed and negative Constitutional: denies: chills, diaphoresis, fever, malaise, weakness Eyes: denies: eye pain, eye discharge, vision change ENT: denies: ear pain, throat pain, dental pain, hearing loss, congestion Respiratory: denies: cough, shortness of breath, SOB with exertion, SOB at rest, wheezing Cardiovascular: denies: chest pain, palpitations, dyspnea on exertion, edema, syncope, paroxysmal nocturnal dyspnea Gastrointestinal: denies: abdominal pain, nausea, vomiting, diarrhea, co nstipation, hematemesis Genitourinary: denies: urgency, dysuria, discharge Musculoskeletal: other (left flank pain ) Skin: denies: rash, lesions, change in color, change in hair/nails, pruritus Neurological: denies: headache, weakness, numbness, paresthesias, confusion, abnormal gait, vertigo ED Past Medical Hx - Past Medical History Hx Hypertension: Yes Hx Congestive Heart Failure: No Hx Diabetes: Yes Hx Asthma: No Hx COPD: No Hx HIV: No Additional medical history: High Cholesterol - Surgical History Additional Surgical History: hernia repair / breast reduction - Social History Smoking Status: Current Every Day Smoker - Medications Home Medications: Home Medications Medication Instructions Recorded Confirmed Last Taken Type Glimepiride [Amaryl] 4 mg PO QDDIAB #30 tablet 05/04/18 Unknown Rx metFORMIN 1,000 mg PO BID #60 05/04/18 Unknown Rx Benzonatate [Tessalon Perles] 100 mg PO Q12H PRN #20 capsule 09/07/19 Unknown Rx levoFLOXacin [Levaquin] 750 mg PO QDAY #14 tablet 09/07/19 Unknown Rx Mag Hydrox/Aluminum Hyd/Simeth 10 ml PO QID PRN #1 bottle 02/15/21 Unknown Rx [Maalox Advanced Suspension] Ondansetron [Zofran Odt] 4 mg PO Q8HR PRN #10 tab.rapdis 02/15/21 Unknown Rx Pantoprazole [Protonix TAB] 40 mg PO QDAY #30 tablet 02/15/21 Unknown Rx Sucralfate [Carafate] 1 gm PO ACHS 7 Days #21 tablet 02/15/21 Unknown Rx Acetaminophen/Codeine [Tylenol 1 tab PO Q4HR PRN #10 tablet 09/30/21 Unknown Rx /Codeine # 3 tab] ED Physical Exam - General Limitations: No Limitations General appearance: alert, in no apparent distress - Head Head exam: Present: atraumatic, normocephalic, normal inspection - Eye Eye exam: Present: normal appearance, PERRL, EOMI Pupils: Present: normal accommodation - Neck Neck exam: Present: normal inspection, full ROM. Absent: meningismus - Respiratory Respiratory exam: Present: normal lung sounds bilaterally, chest wall tenderness (left lateral area). Absent: respiratory distress, wheezes, rales, rhonchi - Cardiovascular Cardiovascular Exam: Absent: regular rate, normal rhythm, normal heart sounds - GI/Abdominal GI/Abdominal exam: Present: soft. Absent: distended, tenderness, guarding, rebound - Back Exam Back exam: Present: normal inspection, full ROM, other (soft tissue ttp left flank area). Absent: CVA tenderness (R), CVA tenderness (L), paraspinal tenderness, vertebral tenderness - Neurological Exam Neurological exam: Present: alert, oriented X3, CN II-XII intact, normal gait - Psychiatric Psychiatric exam: Present: normal affect, normal mood - Skin Skin exam: Present: intact ED Course Vital Signs 09/30/21 09/30/21 11:14 15:18 Temperature 98.7 F 98.2 F Pulse Rate 84 84 Respiratory 18 14 Rate Blood Pressure 180/108 Blood Pressure 158/100 [Right] O2 Sat by Pulse 99 100 Oximetry ED Medical Decision Making - Lab Data Result diagrams: 09/30/21 11:59 09/30/21 11:59 - EKG Data EKG shows normal: sinus rhythm (84) Rate: normal - EKG Data When compared to previous EKG there are: no significant change Interpretation: other (old infarct but otherwise normal ) - Radiology Data Radiology results: report reviewed Patient Name: FAWN MANCIA Gender: Female Date of : 1980 Referring Provider: JOSE AYALA Organization: [facility] Accession Number: [id number] Requested Date: September 30, 2021 11:30 Report Status: Final Requested Procedure: 1 Procedure Description: XR chest routine 2V Modality: XR Findings Reporting MD: Kenny Rubi Dictation Time: September 30, 2021 11:02 Float Phlebotomist: Not available Cleaning Associate Date: XR chest routine 2V INDICATION / CLINICAL INFORMATION: Left flank pain. COMPARISON: 09/07/2019 FINDINGS: SUPPORT DEVICES: None. HEART /PULMONARY VASCULATURE: No significant abnormality. LUNGS / PLEURA: No significant pulmonary or pleural abnormality. No pneumothorax. ADDITIONAL FINDINGS: No significant additional findings. IMPRESSION: No acute findings. Signer Name: Kenny Rubi MD Signed: 09/30/2021 11:02 AM Workstation Name: [email or web address] - Medical Decision Making Patient has been having symptoms of this left flank pain chronically for months. Her work-up today does not show any acute abnormalities including negative chest x-ray, EKG which shows no acute abnormality or change compared to previous EKGs, and a normal troponin. Her urine also does not suggest a UTI. At this time I do not suspect the pain to be related to unstable angina, kidney stone, acute intra-abdominal process, pulmonary embolus or any other acute abnormality warranting additional testing at this time. Informed patient that she will need to follow-up with her primary care doctor for further evaluation and she may even need an MRI as this could also be coming from her spine. Patient is nontoxic, she is not ill-appearing, her gait is normal, and she is neurologically intact. She is not in any significant distress. Her blood pressure was elevated but nothing critical and the remainder of her vital signs are stable. Patient expressed understanding and agree with plan. Patient was stable at time of discharge. Critical care attestation.: If time is entered above; I have spent that time in minutes in the direct care of this critically ill patient, excluding procedure time. ED Disposition Clinical Impression: Left flank pain, chronic Disposition: HOME / SELF CARE / HOMELESS Is pt being admited?: No Does the pt Need Aspirin: No Condition: Stable Instructions: Flank Pain, Adult, Guwy-sy-Glkg Additional Instructions: Recommend that you take the tyleno 3 as prescribed to help with pain. I do recommend that you follow up with your PCP for further evaluation and possible MRI. Return if changes or worsens. Prescriptions: Acetaminophen/Codeine [Tylenol /Codeine # 3 tab] 1 tab PO Q4HR PRN #10 tablet PRN Reason: Pain Referrals: PRIMARY CARE, [Primary Care Provider] - 3-5 Days Forms: Work/School Release Form(ED) Time of Disposition: 15:05
[2021-09-30 12:11] LABS: Basophils # (Auto) 0.1 K/mm3 (0.0-0.1); Eosinophils # (Auto) 0.2 K/mm3 (0.0-0.4); Eosinophils % (Auto) 1.7 % (0.0-4.3); Hematocrit 43.8 % (30.3-42.9); Hemoglobin 14.3 gm/dl (10.1-14.3); Lymphocytes # (Auto) 2.7 K/mm3 (1.2-5.4); Lymphocytes % (Auto) 28.1 % (13.4-35.0); Mean Corpuscular HGB Conc 33 % (30-34); Mean Corpuscular Volume 97 fl (79-97); Monocytes # (Auto) 0.5 K/mm3 (0.0-0.8); Monocytes % (Auto) 5.4 % (0.0-7.3); Platelet Count 358 K/mm3 (140-440); Red Cell Distribution Width 13.8 % (13.2-15.2)
[2021-09-30 12:38] LABS: Alanine Aminotransferase 26 units/L (7-56); Albumin 4.3 g/dL (3.9-5); Blood Urea Nitrogen 8 mg/dL (7-17); Calcium 8.9 mg/dL (8.4-10.2); Hemolysis Index 12
[2021-09-30 12:40] LABS: BUN/Creatinine Ratio 13
[2021-09-30 15:21] VITALS: BP 158/100
[2021-09-30 15:30] LABS: Bacteria,Urine 1+ /HPF (Negative); Mucus,Urine FEW /HPF
[2021-09-30 16:21] LABS: Blood,Urine Negative (Negative); Color,Urine Yellow (Yellow)
[2021-09-30 16:22] LABS: Bilirubin,Urine 1+ (Negative); Protein,Urine <15 mg/dL mg/dL (Negative)
--- NOTE | 2021-09-30 23:52 | XRay Report ---
XR chest routine 2V INDICATION / CLINICAL INFORMATION: Left flank pain. COMPARISON: 09/07/2019 FINDINGS: SUPPORT DEVICES: None. HEART /PULMONARY VASCULATURE: No significant abnormality. LUNGS / PLEURA: No significant pulmonary or pleural abnormality. No pneumothorax. ADDITIONAL FINDINGS: No significant additional findings. IMPRESSION: No acute findings. Signer Name: Kenny Rubi MD Signed: 09/30/2021 12:02 PM Workstation Name: [id number]
--- NOTE | 2021-10-01 14:04 | Electrocardiograph Report ---
[facility] Test Date: 2021-09-30 Test Time: 13:10:19 Pat Name: FAWN MANCIA Department: Room: Gender: F Clinical Research Technician: RADHA : 1980 Requested By: JOSE AYALA Order Number: [id number] Reading MD: German Camargo Measurements Intervals [place] Rate: 84 P: 31 HI: 156 QRS: 40 QRSD: 84 T: 46 QT: 391 QTc: 462 Interpretive Statements Sinus rhythm Anteroseptal infarct, old Early repolarization ST changes Compared to ECG 02/15/2021 13:04:03 No significant change Electronically Signed On 10-01-2021 14:04:04 EST by German Camargo
== END 2021-09-30 15:21 | disposition home or self-care (01) ==
LOC: ED 10:12
DX: R10.9 Unspecified abdominal pain (principal); I10 Essential (primary) hypertension; E11.9 Type 2 diabetes mellitus without complications; Z98.890 Other specified postprocedural states; F17.200 Nicotine dependence, unspecified, uncomplicated
CPT/HCPCS: 36415; 71046; 80053; 81001; 83690; 84484; 85025; 93005; 93010; 99284

== ENCOUNTER 2021-12-03 11:20 | Emergency (ER) | payer MEDICAID ==
[2021-12-03 11:41] VITALS: BP 143/95
--- NOTE | 2021-12-03 16:25 | XRay Report ---
. CHEST 2 VIEWS INDICATION: chest pain. COMPARISON: 09/30/2021 FINDINGS: Support devices: None. Heart: Within normal limits. Lungs/Pleura: No acute air space or interstitial disease. No significant pleural effusion. IMPRESSION: No acute findings. Signer Name: Gunnar Woods MD Signed: 12/03/2021 4:21 PM Workstation Name: [id number]
[2021-12-03 17:44] LABS: Hematocrit 43.3 % (30.3-42.9); Hemoglobin 14.8 gm/dl (10.1-14.3); Mean Corpuscular HGB Conc 34 % (30-34); Mean Corpuscular Volume 98 fl (79-97); Platelet Count 337 K/mm3 (140-440); Red Blood Count 4.43 M/mm3 (3.65-5.03); Red Cell Distribution Width 13.2 % (13.2-15.2)
[2021-12-03 18:01] LABS: Alanine Aminotransferase 26 units/L (7-56); Albumin 4.6 g/dL (3.9-5); BUN/Creatinine Ratio 13; Blood Urea Nitrogen 8 mg/dL (7-17); Calcium 9.2 mg/dL (8.4-10.2); Hemolysis Index 55
--- NOTE | 2021-12-04 10:58 | Electrocardiograph Report ---
[facility] Test Date: 2021-12-03 Test Time: 11:38:59 Pat Name: FAWN MANCIA Department: Room: Gender: F Prepress Technician: SLIME : 1980 Requested By: ED DOC Order Number: [id number] Reading MD: Elio Adan Measurements Intervals [place] Rate: 113 P: 49 IN: 144 QRS: 46 QRSD: 76 T: 32 QT: 334 QTc: 458 Interpretive Statements Sinus tachycardia ST elev, probable normal early repol pattern Compared to ECG 09/30/2021 13:10:19 Sinus rhythm no longer present Myocardial infarct finding no longer present Early repolarization no longer present ST (T wave) deviation still present Electronically Signed On 12-04-2021 10:58:16 EDT by Elio Adan
== END 2021-12-03 21:00 | disposition left against medical advice (07) ==
LOC: ED 11:20
DX: R07.9 Chest pain, unspecified (principal); Z53.21 Procedure and treatment not carried out due to patient leaving prior to being seen by health care provider
CPT/HCPCS: 36415; 71046; 80053; 84484; 85027; 93005